=== PATIENT | female | born 1940 | race Caucasian/White ===

== ENCOUNTER → 2018-12-21 10:07 | Outpatient (CLI) | payer MEDICARE, OTHER, SELFPAY | PROVIDERS: PCP Internal Medicine; Visit Provider Internal Medicine | DX: M85.852 Other specified disorders of bone density and structure, left thigh (principal); Z78.0 Asymptomatic menopausal state | CPT/HCPCS: 77080 ==

== ENCOUNTER → 2019-07-23 09:05 | Outpatient (CLI) | payer MEDICARE, OTHER, SELFPAY ==
[2019-07-23 11:47] LABS: Aspartate Aminotransferase 30 IU/L (14-36); Cholesterol 258 mg/dL (140-199); HDL Cholesterol 75 mg/dL (40-60); LDL Cholesterol Calculated 162 mg/dL (<100); Triglycerides 106 mg/dL (35-150)
== END ==
PROVIDERS: PCP Internal Medicine; Visit Provider Internal Medicine
DX: E78.2 Mixed hyperlipidemia (principal)
CPT/HCPCS: 36415; 80061; 84450

== ENCOUNTER → 2020-10-08 14:52 | Outpatient (ROUT) | payer MEDICARE, OTHER, SELFPAY ==
[2020-10-08 15:54] LABS: Aspartate Aminotransferase 31 IU/L (14-36); Cholesterol 251 mg/dL (140-199); HDL Cholesterol 78 mg/dL (40-60); LDL Cholesterol Calculated 155 mg/dL (<100); Triglycerides 91 mg/dL (35-150)
== END ==
PROVIDERS: PCP Internal Medicine; Visit Provider Internal Medicine
DX: E78.2 Mixed hyperlipidemia (principal)
CPT/HCPCS: 80061; 84450

== ENCOUNTER → 2021-05-10 09:40 | Outpatient (CLI) | payer MEDICARE, OTHER, SELFPAY | PROVIDERS: PCP Internal Medicine; Referring Provider Internal Medicine; Visit Provider Internal Medicine | DX: M85.852 Other specified disorders of bone density and structure, left thigh (principal); Z78.0 Asymptomatic menopausal state | CPT/HCPCS: 77080 ==

== ENCOUNTER → 2022-03-17 09:36 | Outpatient (CLI) | payer MEDICARE, OTHER, SELFPAY ==
[2022-03-17 11:32] LABS: Hematocrit 40.4 % (36-46); Hemoglobin 13.5 g/dL (12.0-16.0); Mean Corpuscular HGB Conc 33.3 % (30-36); Mean Corpuscular Hemoglobin 27.3 PG (26-34); Platelet Count 305 X10^3/uL (150-400); Red Blood Cell Count 4.92 X10^6/uL (4.0-5.2); Red Cell Distribution Width 13.7 % (11.6-14.8); White Blood Cell Count 8.9 X10^3/uL (4.5-11.0)
[2022-03-17 13:01] LABS: Alanine Aminotransferase 22 IU/L (<35); Albumin Globulin Ratio 1.3 (1.0-2.8); Alkaline Phosphatase 77 U/L (38-126); Aspartate Aminotransferase 30 IU/L (14-36); BUN Creatinine Ratio 20.2 (6-22); Bilirubin Total 0.5 mg/dL (0.2-1.3); Blood Urea Nitrogen 18 mg/dL (7-17); Calcium 8.6 mg/dL (8.4-10.2); Carbon Dioxide 27 mmol/L (22-32); Chloride 105 mmol/L (98-107); Cholesterol 182 mg/dL (140-199); Estimated Glomerular Filt Rate > 60 mL/min (>60); Globulin 3.2 g/dL (1.7-4.1); Glucose 78 mg/dL (80-110); HDL Cholesterol 65 mg/dL (40-60); HEMOLYSIS < 15 (0-50); LDL Cholesterol Calculated 104 mg/dL (<100); Potassium 4.2 mmol/L (3.4-5.1); Sodium 140 mmol/L (137-145); Total Protein 7.2 g/dL (6.3-8.2); Triglycerides 64 mg/dL (35-150)
[2022-03-17 13:17] LABS: TSH w/ Reflex to FT4 5.57 uIU/mL (0.47-4.68)
[2022-03-17 13:54] LABS: Free T4, Direct Thyroxine 0.83 ng/dL (0.78-2.19)
[2022-03-31 17:05] LABS: Vitamin D 25 Hydroxy (D3) 72.2 ng/mL (30.0-100.0)
== END ==
PROVIDERS: PCP Internal Medicine; Referring Provider Internal Medicine; Visit Provider Internal Medicine
DX: E55.9 Vitamin D deficiency, unspecified (principal); E78.2 Mixed hyperlipidemia; M85.89 Other specified disorders of bone density and structure, multiple sites
CPT/HCPCS: 36415; 80053; 80061; 82306; 84439; 84443; 85027

== ENCOUNTER 2022-06-26 15:06 | Emergency (ER) | payer MEDICARE, OTHER, SELFPAY ==
[2022-06-26 15:16] VITALS: BP 130/72; PULSE 87; RESP 18; TEMP 36.9; O2SAT 98; BMI 22.6
--- NOTE | 2022-06-26 15:18 | DI.RAD.S_ITS ---
PROCEDURE: XR FOREARM LT 2V INDICATIONS: reached out in fall TECHNIQUE: 2 views of the forearm were acquired. COMPARISON: None. FINDINGS: Bones: There is a moderately displaced, intra-articular radial head fracture seen. Age-appropriate bony degenerative changes are seen. Soft tissues: No suspicious soft tissue calcifications or masses. IMPRESSION: Radial head fracture, with intra-articular involvement. Dictated by: Stevo Ordaz M.D. on 06/26/2022 at 14:57 Approved by: Stevo Ordaz M.D. on 06/26/2022 at 14:58
[2022-06-26] MEDS: ACETAMINOPHEN 325 MG TABLET PO (17:36)
[2022-06-26] MEDS: IBUPROFEN 400 MG TABLET PO (17:36)
--- NOTE | 2022-06-26 18:26 | ED.GENADULT ---
HPI - General Adult General Chief complaint: Extremity Injury, Upper Stated complaint: Fall/Lt Arm Injury Time Seen by Provider: 06/26/22 17:17 Source: patient Mode of arrival: Ambulatory Limitations: no limitations History of Present Illness HPI narrative: Patient is an 81-year-old female who is here for evaluation of a left arm injury. Patient states that today she was outside raking some leaves. She went to do some trimming of 1 of her garden bushes that was on an incline. She completed the trimming and as she was coming down the incline she fell landing on her left elbow on the sidewalk. She reports no other injuries from the event. She is never injured this elbow in the past. Has discomfort over the left elbow no interventions prior to arrival. Related Data Home Medications Medication Instructions Recorded Confirmed nayelya root extract 1 cap PO DAILY PRN 03/16/22 03/16/22 cholecalciferol (vitamin D3) 125 125 mcg PO DAILY 03/16/22 03/16/22 mcg (5,000 unit) capsule pravastatin 10 mg tablet 10 mg PO DAILY 03/16/22 03/16/22 zinc gluconate 22.5 mg tablet 22.5 mg PO DAILY 03/16/22 03/16/22 Allergies Allergy/AdvReac Type Severity Reaction Status Date / Time hydroxyzine [HYDROXYZINE] Allergy Unknown Verified 03/16/22 08:19 meperidine [From DEMEROL] Allergy Unknown Verified 03/16/22 08:19 scopolamine [SCOPOLAMINE] Allergy Unknown Verified 03/16/22 08:19 Review of Systems Constitutional Constitutional: Reports system reviewed and no additional complaints, except as documented Musculoskeletal Musculoskeletal: Reports system reviewed and no additional complaints, except as documented Integumentary/Breasts Skin/Breast: Reports system reviewed and no additional complaints, except as documented Neurologic Neurologic: Reports system reviewed and no additional complaints, except as documented Hematologic/Lymphatic On Anticoagulants: No Patient History Medical History Do not resuscitate Family history of colon cancer Mixed hyperlipidemia Osteopenia Family History Mother Dementia Father Heart attack Colon cancer Diabetes mellitus Social History Smoking Status: Never smoker Smoking Status: Never smoker Substance Use Type: does not use Exam Initial Vital Signs Initial Vital Signs: Vital Signs Temperature 98.4 F 06/26/22 15:16 Pulse Rate 87 06/26/22 15:16 Respiratory Rate 18 06/26/22 15:16 Blood Pressure 130/72 06/26/22 15:16 Pulse Oximetry 98 06/26/22 15:16 Oxygen Delivery Method 06/26/22 15:16 Const General: cooperative and healthy appearing Cardio Pulses: radial pulses present on the left Skin General: no rashes or lesions noted Neuro Speech: speech normal Extrem Other: Left wrist is unremarkable. Left shoulder is unremarkable. Tenderness over the left elbow. No swelling. Procedures Orthopedic Splinting/Casting Injury #1: Side: left Upper Extremity Injury Location: elbow Upper Extremity Immobilizer: posterior splint Post splinting neuro exam: intact Post splinting vascular exam: intact Placed by: Provider Course Orders Ordered: ED Orders 06/26/22 15:18 XR forearm LT 2V Stat Discontinued Medications Acetaminophen (Acetaminophen 325 Mg Tablet) 325 mg PO NOW ONE Stop: 06/26/22 17:18 Last Admin: 06/26/22 17:36 Dose: 325 mg Documented By: NICA Ibuprofen (Ibuprofen 400 Mg Tablet) 400 mg PO NOW ONE Stop: 06/26/22 17:18 Last Admin: 06/26/22 17:36 Dose: 400 mg Documented By: NICA Vital Signs Vital signs: Vital Signs - 8 hr 06/26/22 15:16 06/26/22 19:18 Temperature 98.4 F Pulse Rate 87 65 Respiratory Rate 18 16 Blood Pressure 130/72 140/75 Pulse Oximetry 98 100 Oxygen Delivery Method Room Air Room Air Medical Decision Making Imaging Data Extremity x-ray #1: Radiologist's Impression: [address] [address] XRay Report Signed Patient: Lexi Bejarano MR#: [id number] : 1940 Acct:[id number] Age/Sex: 81 / F Date of Service: 06/26/22 Loc: ED Accession Number: [id number] ?? Procedure: XR forearm LT 2V Ordering Provider: Barbara Bañuelos MD PROCEDURE:? XR FOREARM LT 2V ? INDICATIONS:? reached out in fall ? TECHNIQUE:? 2 views of the forearm were acquired.? ? COMPARISON:? None. ? FINDINGS:? ? Bones:? There is a moderately displaced, intra-articular radial head fracture seen. ? Age-appropriate bony degenerative changes are seen.? ? Soft tissues:? No suspicious soft tissue calcifications or masses.? ? ? IMPRESSION:? Radial head fracture, with intra-articular involvement. ? Dictated by: Stevo Ordaz M.D. on 06/26/2022 at 14:57 ? ? Approved by: Stevo Ordaz M.D. on 06/26/2022 at 14:58 MDM Narrative Medical decision making narrative: Patient is neurovascularly intact. X-ray does show radial head fracture. She was placed in a posterior splint. Given follow-up instructions and return precautions. She expressed understanding and agreement. Discharge Plan Departure Patient Disposition: Home Clinical Impression: Fracture of head of left radius Instructions: DI for Elbow Fracture, How to Take Care of Your Splint Activity Restrictions/Additional Instructions: The splint needs to stay on it stay clean and stay dry. You need to treat it like a cast. Contact the Orthopedic Department at the number provided below for a follow-up. Return to the emergency department for any new symptoms. Prescriptions: No Action pravastatin 10 mg tablet 10 mg PO DAILY cholecalciferol (vitamin D3) 125 mcg (5,000 unit) capsule 125 mcg PO DAILY zinc gluconate 22.5 mg tablet 22.5 mg PO DAILY ashwagandha root extract 1 cap PO DAILY PRN Referrals: Renny Best MD [Primary Care Provider] - Lynette Ayala MD [Physician] - Visit Report Forms: Patient Portal/API
[2022-06-26 19:18] VITALS: BP 140/75; PULSE 65; RESP 16; O2SAT 100
== END 2022-06-26 19:18 | disposition home or self-care (01) ==
PROVIDERS: Emergency Provider Emergency Medicine; PCP Internal Medicine
DX: S52.122A Displaced fracture of head of left radius, initial encounter for closed fracture (principal); W18.30XA Fall on same level, unspecified, initial encounter
CPT/HCPCS: 73090; 99283

== ENCOUNTER → 2023-09-11 14:37 | Outpatient (CLI) | payer MEDICARE, OTHER, SELFPAY ==
[2023-09-11 15:35] LABS: Aspartate Aminotransferase 31 IU/L (14-36); BUN Creatinine Ratio 22.1 (6-22); Blood Urea Nitrogen 17 mg/dL (7-17); Calcium 9.9 mg/dL (8.4-10.2); Carbon Dioxide 24 mmol/L (22-32); Chloride 104 mmol/L (98-107); Cholesterol 214 mg/dL (140-199); Estimated Glomerular Filt Rate > 60 mL/min (>60); Glucose 95 mg/dL (80-110); HDL Cholesterol 76 mg/dL (40-60); HEMOLYSIS < 15 (0-50); LDL Cholesterol Calculated 122 mg/dL (<100); Sodium 137 mmol/L (137-145); Triglycerides 82 mg/dL (35-150)
[2023-09-11 15:55] LABS: TSH w/ Reflex to FT4 4.29 uIU/mL (0.47-4.68)
== END ==
PROVIDERS: PCP Internal Medicine; Referring Provider Internal Medicine; Visit Provider Internal Medicine
DX: M85.80 Other specified disorders of bone density and structure, unspecified site (principal); E78.2 Mixed hyperlipidemia
CPT/HCPCS: 36415; 80048; 80061; 84443; 84450

== ENCOUNTER → 2023-10-09 14:51 | Outpatient (CLI) | payer MEDICARE, OTHER, SELFPAY ==
[2023-10-11 06:17] LABS: Fecal Immunochemical Test Negative (Negative)
== END ==
LOC: LAB 14:54
PROVIDERS: PCP Internal Medicine; Referring Provider Internal Medicine; Visit Provider Internal Medicine
DX: Z12.11 Encounter for screening for malignant neoplasm of colon (principal)
CPT/HCPCS: 82274

== ENCOUNTER → 2024-07-01 09:54 | Outpatient (CLI) | payer MEDICARE, OTHER, SELFPAY | PROVIDERS: PCP Internal Medicine; Referring Provider Internal Medicine; Visit Provider Internal Medicine | DX: R00.2 Palpitations (principal) | CPT/HCPCS: 93246; 93248 ==

== ENCOUNTER → 2024-12-26 16:25 | Outpatient (CLI) | payer MEDICARE, OTHER, SELFPAY ==
[2024-12-26 16:55] LABS: Hematocrit 42.8 % (36-46); Hemoglobin 14.2 g/dL (12.0-16.0); Mean Corpuscular HGB Conc 33.2 % (30-36); Mean Corpuscular Hemoglobin 27.3 PG (26-34); Mean Corpuscular Volume 82.2 fL (80-100); Platelet Count 324 X10^3/uL (150-400); Red Blood Cell Count 5.21 X10^6/uL (4.0-5.2); Red Cell Distribution Width 13.4 % (11.6-14.8); White Blood Cell Count 9.9 X10^3/uL (4.5-11.0)
[2024-12-26 17:11] LABS: Aspartate Aminotransferase 37 IU/L (14-36); BUN Creatinine Ratio 17.6 (6-22); Blood Urea Nitrogen 16 mg/dL (7-17); Calcium 9.2 mg/dL (8.4-10.2); Carbon Dioxide 25 mmol/L (22-32); Chloride 104 mmol/L (98-107); Cholesterol 206 mg/dL (140-199); Estimated Glomerular Filt Rate > 60 mL/min (>60); Glucose 99 mg/dL (70-99); HDL Cholesterol 66 mg/dL (40-60); HEMOLYSIS < 15 (0-50); LDL Cholesterol Calculated 121 mg/dL (<100); Potassium 3.8 mmol/L (3.4-5.1); Sodium 137 mmol/L (137-145); Triglycerides 96 mg/dL (35-150)
== END ==
PROVIDERS: PCP Internal Medicine; Referring Provider Internal Medicine; Visit Provider Internal Medicine
DX: E78.2 Mixed hyperlipidemia (principal); R03.0 Elevated blood-pressure reading, without diagnosis of hypertension
CPT/HCPCS: 36415; 80048; 80061; 84450; 85027

== ENCOUNTER → 2025-01-13 09:41 | Outpatient (CLI) | payer MEDICARE, OTHER, SELFPAY ==
[2025-01-14 13:09] LABS: Fecal Immunochemical Test Negative (Negative)
== END ==
LOC: LAB 09:43
PROVIDERS: PCP Internal Medicine; Referring Provider Internal Medicine; Visit Provider Internal Medicine
DX: Z12.11 Encounter for screening for malignant neoplasm of colon (principal)
CPT/HCPCS: 82274

== ENCOUNTER → 2025-06-11 12:17 | Outpatient (CLI) | payer MEDICARE, OTHER, SELFPAY ==
[2025-06-11 12:43] LABS: Hematocrit 42.1 % (36-46); Hemoglobin 14.1 g/dL (12.0-16.0); Mean Corpuscular HGB Conc 33.5 % (30-36); Mean Corpuscular Hemoglobin 27.3 PG (26-34); Mean Corpuscular Volume 81.5 fL (80-100); Platelet Count 329 X10^3/uL (150-400)
[2025-06-11 13:12] LABS: Alanine Aminotransferase 23 IU/L (<35); Albumin 4.6 g/dL (3.5-5.0); Albumin Globulin Ratio 1.2 (1.0-2.8); Alkaline Phosphatase 95 U/L (38-126); Blood Urea Nitrogen 20 mg/dL (7-17); Calcium 9.3 mg/dL (8.4-10.2); Carbon Dioxide 23 mmol/L (22-32); Chloride 104 mmol/L (98-107); Estimated Glomerular Filt Rate > 60 mL/min (>60); Globulin 3.7 g/dL (1.7-4.1); Glucose 94 mg/dL (70-99); HEMOLYSIS 18 (0-50); Potassium 4.2 mmol/L (3.4-5.1); Sodium 137 mmol/L (137-145); Total Protein 8.3 g/dL (6.3-8.2)
[2025-06-11 13:45] LABS: TSH w/ Reflex to FT4 4.45 uIU/mL (0.47-4.68)
== END ==
PROVIDERS: PCP Internal Medicine; Referring Provider Internal Medicine; Visit Provider Internal Medicine
DX: R06.09 Other forms of dyspnea (principal)
CPT/HCPCS: 36415; 80053; 84443; 85027